=== PATIENT | female | born 1970 | race Hispanic/Latino ===

== ENCOUNTER 2019-07-28 09:33 | Outpatient (CLI) | payer OTHER ==
--- NOTE | 2019-07-28 11:42 | RAD ---
PA AND LATERAL VIEWS CHEST: Date: 07/28/19 HISTORY: Preprocedural exam. No current chest complaints. FINDINGS/IMPRESSION: The heart size is borderline. The lungs are well expanded without focal areas of consolidation, pneum othoraces, [place] pulmonary edema, or pleural effusions. POS: [facility]
== END 2019-07-28 09:34 | disposition home or self-care (01) ==
LOC: BICRAD 09:33
PROVIDERS: ATTEND Family Medicine
DX: Z01.818 Encounter for other preprocedural examination (principal)
CPT/HCPCS: 71046

== ENCOUNTER 2020-11-13 07:52 | Outpatient (CLI) | payer OTHER | END 2020-11-13 07:53 | disposition home or self-care (01) | LOC: BICRAD 07:52 | PROVIDERS: ATTEND Family Medicine | DX: G56.02 Carpal tunnel syndrome, left upper limb (principal) ==